=== PATIENT | female | born 1980 | race Caucasian/White ===

== ENCOUNTER 2018-10-19 07:48 | Inpatient (IN) ==
--- NOTE | 2018-10-09 16:44 | PAT Medication Instructions ---
Medication Instructions Date of Service October 09, 2018 Home Medications acetaminophen [Tylenol] 325 - 650 mg PO Q6H PRN Take morning of surgery With a small sip of water, OTHERWISE NOTHING TO EAT OR DRINK AFTER MIDNIGHT: acetaminophen [Tylenol] 325 - 650 mg PO Q6H PRN (okay to take up to 4 hours prior to surgery if needed) Take evening before surgery acetaminophen [Tylenol] 325 - 650 mg PO Q6H PRN (if needed) Other Notes If you have any questions please call us at [phone] or [phone] or [phone] or [phone]
--- NOTE | 2018-10-10 11:52 | Anesthesiology Consultation ---
Date of Service October 10, 2018 Assessment & Plan (1) Encounter for pre-operative examination: - Check test AM DOS Chart Review Chart Review: Acceptable Risk for Surgery and Patient seen in Pre Admission Brittanie leigh Teaching & Discussion Pre-Anesthesia Teaching/Discussion Notes: Instructed NPO after midnight before surgery,except medications with 15 cc of water. Medication instructions provided according to the PAT guidelines. History Surgery Operation Date: 10/19/18 08:50 Proposed Procedures p Supracervical Total Abdominal Hysterectomy with Bilateral Salpingectomy - Mark Roth Jr, MD, FACOG Height/Weight Height: 5 ft 2.75 in Weight: 57.7 kg Allergies Allergy/AdvReac Type Severity Reaction Status Date / Time No Known Allergies Allergy Verified 10/09/18 08:01 Medications Home Medications Medication Instructions Recorded Confirmed Last Taken acetaminophen [Tylenol] 325 - 650 mg PO Q6H PRN 10/09/18 10/09/18 Unknown Past Medical History Medical History Anxiety HX Migraine HX Urinary retention STRAIGHT CATH Q6H PRN (FELT 2/2 FIBROID) Uterine fibroid Exercise / Class Metabolic Activity II 4-5 Yardwork/Stairs/Walk up hill Past Family History Family History Father Family history of diabetes mellitus Past Surgical History Surgical History History of open reduction and internal fixation (ORIF) procedure LEFT ARM History of tooth extraction Past Anesthesia History No Hx of Anesthesia Complications and No Family Hx of Anesthesia Complications History of PONV No Hx of PONV and No Hx of Motion Sickness Social History Smoking Status: Current every day smoker tobacco type: cigarettes Smoking cigarettes per day: <8 CIGARETTES/DAY X 24 YEARS (INTERMITTENT) Do You Dip or Chew Tobacco: No Hx Alcohol Use: Yes Alcohol type: wine alcohol intake frequency: a few times a week Hx Substance Use: Yes substance use type: marijuana Last Used Substance Other:: "OCCASIONAL MARIJUANA USE"; LAST USE 3 WEEKS (ADVISED) Review of Systems Patient denies chest pain, shortness of breath, dyspnea on exertion,reflux, cough, wheezing, palpitations. Physical Exam Vital Signs VITALS BP 115/75 P 83 TEMP 98.8 SP02 95%RA RESP 16 PHYSICAL Full neck and c-spine range of motion. Full TMJ range of motion. TMD 3.5 finger breaths Mallampati Score 1 Dentition: missing molars Lungs: clear throughout to auscultation Cardiac: regular rate and rhythm, no murmurs noted Spine: normal Extremities: no edema Testing Laboratory Results 10/02/18 WBC 6.6 H/H 12.5/37.4 PLATELETS 268 SODIUM 140 POTASSIUM 3.8 CHLORIDE 107 CO2 25 BUN 11 CREATININE 0.72 GLUCOSE 86 UA negative bacteria 10/10/18 T&S B-Ab-
--- NOTE | 2018-10-10 13:22 | History and Physical Report ---
DATE OF ADMISSION: 10/19/2018 ADMITTING DIAGNOSES: 1. Symptomatic fibroid uterus. 2. Urinary outflow tract obstruction. ADMISSION HISTORY: The patient is a 38-year-old 0, last menstrual period of 06 October who is admitted for probable supracervical hysterectomy with bilateral salpingectomy for symptomatic fibroid uterus with urinary tract outflow obstruction. The patient presented to the Emergency Room the first week of September for evaluation of urinary symptoms and abdominal bloating. In the ER, she was diagnosed with an obstructed bladder urethral neck from a fibroid uterus. Lobato catheter was inserted and 3 liters of urine was drained. The patient did not wish to have the Lobato kept in place and she was discharged home. She will return to the ER 24 hours later with recurrent urinary retention and was drained for an additional liter of urine. The patient was taught self-catheterization and she is currently self-catheterizing to drain her bladder. The patient was told 2 years ago by a freezing room worker in [place] that she had large fibroids of her uterus and surgical excision was recommended. The patient wanted to preserve her uterus at that time and was hoping for a laparoscopic approach. The physician in [place] dated that the procedure could be performed laparoscopically. The patient was evaluated in the Emergency Room on 02 October and she related again that she did not wish to have a hysterectomy performed. The patient was subsequently seen in my office in followup. A long discussion with the patient including treatment options were thoroughly discussed and the patient has opted for the above-listed procedures. PAST MEDICAL HISTORY: OB: Nulligravida. PHARMACIST IN CHARGE: As above. MEDICAL: None. SURGICAL: Arm surgery. ALLERGIES: No known drug allergies. SOCIAL HISTORY: Positive for smoking. FAMILY HISTORY: Noncontributory. REVIEW OF SYSTEMS: As per HPI. ADMISSION PHYSICAL EXAMINATION: GENERAL: Shows a pleasant female in no acute distress. VITAL SIGNS: Blood pressure 118/80, height of 5 feet 2 inches and a weight of 127 pounds. HEENT EXAMINATION: Unremarkable. NECK: Supple. LUNGS: Clear. HEART: With a regular rhythm and rate. ABDOMEN: Soft, nontender. Probable distended bladder on physical examination. No hernias discovered. PELVIC: Shows normal external genitalia. The vaginal vault is pink and rugated. The cervix cannot be visualized secondary to displacement behind the pubic bone. On bimanual examination, a large dominant fibroid occupies the pelvis which is palpated approximately 3 cm into the vagina. The cervix can be palpated, but cannot be visualized. The uterus cannot be distinguished from the mass. The adnexa show no palpable masses. RECTAL: Confirmatory. EXTREMITIES: Shows no deep calf tenderness. NEUROLOGIC: Grossly intact. IMPRESSION: A 38-year-old 0, symptomatic fibroid uterus with urinary neck obstruction. PLAN: Pelvic ultrasound in the office shows a 12 cm fibroid occupying the cul-de-sac displacing the uterus anteriorly. In addition, there is a 4 cm fibroid anterior to the fundus. The patient wishes to preserve her uterus if at all possible, but understands that a supracervical hysterectomy may be indicated as well as removal of the cervix. The risks, benefits and alternatives to the surgery have been discussed. While the benefits will be removal of the obstruction of the bladder neck, the risks are bleeding, infection, inadvertent injury to bowel or bladder, and the unknown nature of the surgical procedure. Ideally, the patient would like to preserve her uterus and only have a myomectomy performed. She is also aware that her cervix may need to be removed at the time of the hysterectomy to allow completion of the surgery. The patient would like a transverse incision abdominally. The need for possible cutting of the rectus muscles to allow visualization and space to perform the surgery has been explained to the patient. The patient understands and consents. We have also discussed that if a myomectomy only is performed, the fibroid could recur. All questions answered of the patient, the permit has been signed, and she wishes to proceed.
[~2018-10-19 07:48] MED LIST: ACETAMINOPHEN 1000 MG/100 ML IV IV ONE; LR 15ML/HR IV SCH; LR 60ML/HR IV SCH
[2018-10-19] MEDS ORDERED: CEFAZOLIN 2,000 MG/15 ML IV PUSH IV ONE (07:56)
[2018-10-19] MEDS ORDERED: LIDOCAINE HCL 2% 2 ML VIAL/AMP(20MG/ML) INFIL ONE (07:58)
[2018-10-19] MEDS ORDERED: MIDAZOLAM HCL 1 MG/ML 2ML VIAL ONE (07:58)
[2018-10-19] MEDS ORDERED: PROPOFOL IV EMULSION 10 MG/ML 20 ML VIAL IV ONE (07:58)
[2018-10-19] MEDS ORDERED: fentaNYL citrate 100 MCG/2 ML VIAL ONE (07:58)
[2018-10-19] MEDS ORDERED: DEXAMETHASONE SOD INJ 4 MG/ML VIAL ONE (07:58)
[2018-10-19] MEDS ORDERED: ROCURONIUM BROMIDE 10 MG/ML 5 ML VIAL ONE ×2 (07:58→09:48)
[2018-10-19] MEDS ORDERED: ONDANSETRON INJ 2 MG/ML 2 ML VIAL ONE (07:58)
[2018-10-19] MEDS ORDERED: KETOROLAC 30 MG/ML VIAL ONE (08:38)
[2018-10-19] MEDS ORDERED: NEOSTIGMINE METHYLSULFATE 5 MG/5 ML SYR ONE (08:38)
[2018-10-19] MEDS ORDERED: GLYCOPYRROLATE 0.2 MG/ML VIAL ONE (08:38)
--- NOTE | 2018-10-19 08:41 | History & Physical Bridge Note ---
Date of Service October 19, 2018 History & Physical Bridge Note I have examined the patient, reviewed the History & Physical and in the interval since the performance of the History & Physical I have noted the following changes of clinical significance: no changes noted
[2018-10-19 09:14] LABS: Pregnancy Test, Serum Negative (Negative)
[2018-10-19] MEDS ORDERED: VASOPRESSIN 20 UNIT/ML VIAL ONE (09:14)
[2018-10-19] MEDS ORDERED: MoRPHine SULFATE PF 1 MG/ML 10 ML AMP/VIAL ONE (09:33)
[2018-10-19] MEDS ORDERED: ONDANSETRON INJ 2 MG/ML 2 ML VIAL IV PRN ×2 (09:43→12:39)
[2018-10-19] MEDS ORDERED: NALOXONE HCL 0.08 MG in SYRINGE 1.8 ML IV PRN (09:43)
[2018-10-19] MEDS ORDERED: ePHEDrine sulfate 50 MG/ML AMP IV PRN (09:43)
[2018-10-19] MEDS ORDERED: NALOXONE HCL 1 MG in SODIUM CHLORIDE 0.9% 1000ML 1,000 ML IV PRN (09:43)
[2018-10-19] MEDS ORDERED: PROMETHAZINE HCL 12.5 MG in SODIUM CHLORIDE 0.9% 50 ML IV PRN (09:43)
[2018-10-19] MEDS ORDERED: DiphenhydrAMINE HCL 50 MG/ML VIAL IV PRN (09:43)
[2018-10-19] MEDS ORDERED: NALBUPHINE HCL INJ 10 MG/ML AMP IV PRN (09:43)
[2018-10-19] MEDS ORDERED: MoRPHine SULFATE PF 1 MG/ML 10 ML AMP/VIAL INT SPINAL ONE (09:43)
[2018-10-19] MEDS ORDERED: NALOXONE HCL 0.4 MG/1 ML VIAL/CARP IV PRN (09:43)
[2018-10-19] MEDS ORDERED: LACTATED RINGER'S 500 ML IV PRN (09:43)
[2018-10-19] MEDS ORDERED: NO NARCOTICS OR SEDATIVES SCH (09:45)
[2018-10-19] MEDS ORDERED: SODIUM CHLORIDE 0.9% 1000ML 1,000 ML IV SCH (09:45)
[2018-10-19] MEDS ORDERED: DC INTRASPINAL MORPHINE SCH (09:45)
[2018-10-19] MEDS ORDERED: HYDROmorphone INJ 2 MG/ML SYR/VIAL ONE (10:01)
[2018-10-19] MEDS ORDERED: PHENYLEPHRINE 100MCG/ML 5ML SYR ONE (10:20)
--- NOTE | 2018-10-19 10:46 | Post Operative Brief Note ---
Immediate Post Op Note v1 Date of Surgery October 19, 2018 Pre & Post Diagnosis Operation Date: 10/19/18 09:00 Pre-Op Diagnosis: Fibroid Uterus; Urinary Outflow Obstruction Post-Op Diagnosis: Fibroid Uterus; Urinary Outflow Obstruction Procedure Operation Date: 10/19/18 09:00 Actual Procedures p Supracervical Hysterectomy with Bilateral Salpingectomy - Mark Roth Jr, MD, FACOG Surgeon Mark Roth Jr, MD, FACOG Dance Director Jhonny Omer Estimated Blood Loss 100 Findings See Below (large dominant posterior fibroid occupying cul-de-sac. Multiple seedling fibroids, normal appearing tubes and ovaries bilaterally. Thickend bladder wall. Supracervical hysterectomy with bilateral salpingectomy) Drains Lobato Catheter
[2018-10-19] MEDS: HYDROmorphone INJ 0.5 MG/0.5 ML SYR IV PRN ×2 (11:06→19:15)
[2018-10-19] MEDS ORDERED: HYDROmorphone INJ 1 MG/ML SYRINGE ONE ×2 (11:18→11:30)
[2018-10-19] MEDS ORDERED: LORazepam 2 MG/4 ML VIAL ONE (11:31)
[2018-10-19] MEDS ORDERED: HYDROmorphone INJ 0.5 MG/0.5 ML SYR IV STA (11:36)
[2018-10-19] MEDS ORDERED: LORazepam 0.5 MG/1 ML VIAL IV STA (11:48)
--- NOTE | 2018-10-19 12:21 | Anesthesiology Progress Note ---
Date of Service October 19, 2018 Anesthesia Post Procedure Vital Signs Vital Signs: Temp Pulse Pulse Resp BP Pulse Ox 10/19/18 12:05 91 H 12 136/73 100 10/19/18 11:55 69 12 135/64 99 10/19/18 11:45 66 11 L 126/73 100 10/19/18 11:35 66 10 L 130/74 100 10/19/18 11:25 73 11 L 153/67 H 100 10/19/18 11:15 66 12 138/84 100 10/19/18 11:05 68 10 L 148/74 H 100 10/19/18 10:59 37.3 C 72 20 141/76 H 100 10/19/18 08:21 37.1 C 90 16 112/78 96 Pain Intensity Lower Abdomen: Pain Intensity: 4 Transfer of Care Handoff Completed per policy Notes Mental Status: alert / awake / arousable and participated in evaluation Patient Amnestic to Procedure: Yes Nausea / Vomiting: adequately controlled Pain: improving with treatment (Required multimodal approach along with small dose ativan in PACU for anxiety postop) Airway Patency, RR, SpO2: stable & adequate BP & HR: stable & adequate Hydration State: stable & adequate Anesthetic Complications: no major complications apparent and Pt Satisfied with anesthetic care
[2018-10-19] MEDS ORDERED: KETOROLAC 30 MG/ML VIAL IV PRN (12:39)
[2018-10-19] MEDS: LACTATED RINGER'S 1,000 ML IV SCH ×2 (13:27→16:58)
[2018-10-19] MEDS: MoRPHine SULFATE 2 MG/ML CARP IV PRN ×2 (13:28→16:37)
--- NOTE | 2018-10-19 20:43 | Operative Report ---
DATE OF OPERATION: 10/19/2018 PREOPERATIVE DIAGNOSES: 1. Symptomatic fibroid uterus. 2. Urinary outflow tract obstruction. POSTOPERATIVE DIAGNOSES: 1. Symptomatic fibroid uterus. 2. Urinary outflow tract obstruction. PROCEDURE PERFORMED: 1. Supracervical hysterectomy. 2. Bilateral salpingectomy. SURGEON: Mark Roth MD. PARTS SALES ASSOCIATE: Maria M Omer MD. ANESTHESIA: General. FINDINGS: Exploration of the pelvis showed a large dominant fibroid uterus approximately 11 cm in diameter occupying the cul-de-sac and replacing the posterior wall of the uterus. Multiple seedling fibroids noted throughout the uterus with normal-appearing tubes and ovaries bilaterally. Supracervical hysterectomy with bilateral salpingectomy performed and sent for pathological evaluation. PROCEDURE IN DETAIL: The patient was taken to the operating room and after general anesthesia, was placed in supine position and draped and prepped in usual fashion. Pfannenstiel type incision was made and underlying subcutaneous tissue was dissected down to the ventral abdominal fascia, which was nicked and opened in a horizontal manner. Preperitoneal fascia was dissected away until the peritoneal cavity was entered and opened in a vertical manner. The exploration of the pelvis with fibroid as described. This was delivered out through the incision, pulling the fibroid out of the cul-de-sac and lifting it out of the pelvis and into the operative field. Retractor was not necessary in order to perform the procedure. Ureters were identified along the pelvic sidewall. The left round ligament was ligated with 0 Vicryl suture, cut open the anterior leaf of the broad ligament which was taken down over the level of the cervix. An incision was then made in the broad ligament and the infundibulopelvic ligament was initially clamped distal to the ovary and cut and tied. Uterine vessels were then skeletonized on the left hand side and uterine vessels were then ligated with Ro clamps x2, cut and ligated. The right round ligament was then isolated, ligated with 0 Vicryl suture, cut open the anterior leaf of the broad ligament, which was taken down to join the contralateral side. The ureter was identified along the right pelvic sidewall. An incision was made in the broad ligament and the adnexa was clamped distally to the ovary and cut and ligated with 0 Vicryl suture. Uterine vessels were then skeletonized on the right hand side and the uterine vessels were then cross clamped with Ro clamps x2 and ligated with 0 Vicryl suture. The cervix and bladder flap were identified and created with blunt and sharp dissection. The cervix was visualized and it was felt that the uterus had been isolated from the cervix, so an incision was made across the cervix performing a supracervical hysterectomy and removing the specimen from the field. The cervical stump was closed with interrupted 0 Vicryl sutures. Hemostasis present. The left fallopian tube was isolated and excised along the mesosalpinx and sent for separate pathological specimen. In a similar fashion, the right fallopian tube was cauterized along the mesosalpinx removed and sent for pathological evaluation. Both ovaries were viable and intact. The pelvis was then thoroughly irrigated with 1000 mL of warm saline. All pedicles were inspected for hemostasis, which was present. Sponge and needle count was correct. The rectus muscle was then plicated in the midline with a running 2-0 Vicryl suture. The fascia was closed laterally to the midline with 0 Vicryl sutures. The subcutaneous tissue was irrigated with warm saline and the skin incision was closed with a 4-0 Monocryl subcuticular suture. Sterile dressing was applied and the patient was taken to the recovery room in satisfactory condition. I attest to the content of the Intraoperative Record and any orders documented therein. Any exception s are noted below.
[2018-10-19] MEDS: SENNA 8.6 MG TAB PO SCH (20:48)
[2018-10-19] MEDS: MAGNESIUM HYDROXIDE SUSP 30 ML UDC PO SCH (21:07)
[2018-10-20] MEDS: HYDROmorphone INJ 0.5 MG/0.5 ML SYR IV PRN (00:12)
[2018-10-20] MEDS ORDERED: KETOROLAC 30 MG/ML VIAL IV PRN (03:43)
[2018-10-20] MEDS ORDERED: ONDANSETRON INJ 2 MG/ML 2 ML VIAL IV PRN (03:43)
[2018-10-20 07:06] LABS: Basophils # (auto) 0.01 K/uL (0-0.2); Basophils % (auto) 0.1 %; Eosinophils # (auto) 0.04 K/uL (0-0.5); Eosinophils % (auto) 0.4 %; Hematocrit (blood only) 29.7 % (37-47); Hemoglobin 9.9 g/dL (12.0-16.0); Immature Granulocytes # (auto) 0.01 K/uL (0.00-0.02); Immature Granulocytes % (auto) 0.1 %; Lymphocytes # (auto) 3.23 K/uL (1.2-3.4); Lymphocytes % (auto) 36.3 %; Mean Corpuscular Hgb Conc 33.3 g/dL (32-36); Mean Corpuscular Volume 94.3 fL (80-100); Mean Platelet Volume 10.6 fL (7.4-10.4); Monocytes # (auto) 0.72 K/uL (0.11-0.59); Monocytes % (auto) 8.1 %; Platelet Count 225 K/uL (130-400); RDW Coefficient of Variation 12.9 % (11.5-14.5); RDW Standard Deviation 44.1 fL (36.4-46.3); Red Blood Count 3.15 M/uL (4.2-5.4); White Blood Count 8.91 K/uL (4.8-10.8)
--- NOTE | 2018-10-20 07:26 | Gynecologic Progress Note ---
Date of Service October 20, 2018 Assessment & Plan (1) Leiomyoma of uterus: - discussed surgery and findings patient - importance of ambulation discussed with patient - anticipated post-op anemia, will start Fe - routine care, doing well Subjective post-op pain Physical Exam Constitutional: WD/WN, vitals as above Respiratory: Auscultation: lungs clear to auscultation bilaterally Cardiovascular: RRR, no murmur, no edema Extremities: no calf tenderness Gastrointestinal (Abdomen): Dressing dry, appropriate post-op tenderness Results & Data Vital Signs (Past 12 Hours) Vital Signs Temp Pulse Resp BP Pulse Ox 10/20/18 04:40 36.8 C 63 20 99/59 L 94 10/20/18 00:15 36.8 C 64 18 104/67 98
[2018-10-20] MEDS: OXYCODONE/ACETAMINOPHEN 5mg/325mg TAB PO PRN ×5 (08:28→20:19)
[2018-10-20] MEDS: FERROUS SULFATE 325 MG TAB PO SCH (10:31)
[2018-10-20] MEDS: IBUPROFEN 600 MG TAB PO PRN ×3 (12:00→20:19)
--- NOTE | 2018-10-20 17:08 | Anesthesiology Progress Note ---
Date of Service October 20, 2018 Anesthesia Post Procedure Vital Signs Vital Signs: Temp Pulse Pulse Resp BP Pulse Ox 10/20/18 16:10 37.0 C 63 18 115/76 97 10/20/18 11:45 37.0 C 65 18 116/77 96 10/20/18 08:15 36.8 C 60 16 106/65 92 10/20/18 04:40 36.8 C 63 20 99/59 L 94 10/20/18 00:15 36.8 C 64 18 104/67 98 10/19/18 19:05 37.4 C 64 16 99/62 L 97 Pain Intensity Lower Abdomen: Pain Intensity: 5 Transfer of Care Handoff Completed per policy Notes Mental Status: alert / awake / arousable and participated in evaluation Patient Amnestic to Procedure: Yes Nausea / Vomiting: adequately controlled Pain: adequately controlled Airway Patency, RR, SpO2: stable & adequate BP & HR: stable & adequate Hydration State: stable & adequate Anesthetic Complications: no major complications apparent and Pt Satisfied with anesthetic care
[2018-10-20] MEDS ORDERED: MoRPHine SULFATE 4 MG/ML 1 ML CARP\\VIAL IV STA (18:15)
[2018-10-20] MEDS: MAGNESIUM HYDROXIDE SUSP 30 ML UDC PO SCH (20:50)
[2018-10-20] MEDS: SENNA 8.6 MG TAB PO SCH (20:51)
[2018-10-20] MEDS: SIMETHICONE 80 MG CHEW PO PRN (20:53)
[2018-10-21] MEDS: OXYCODONE/ACETAMINOPHEN 5mg/325mg TAB PO PRN ×2 (00:14→04:25)
[2018-10-21] MEDS: IBUPROFEN 600 MG TAB PO PRN ×3 (00:14→08:09)
[2018-10-21] MEDS: SIMETHICONE 80 MG CHEW PO PRN ×3 (00:14→08:09)
[2018-10-21 06:08] LABS: Basophils # (auto) 0.02 K/uL (0-0.2); Basophils % (auto) 0.2 %; Hematocrit (blood only) 29.1 % (37-47); Hemoglobin 9.5 g/dL (12.0-16.0); Immature Granulocytes # (auto) 0.02 K/uL (0.00-0.02); Immature Granulocytes % (auto) 0.2 %; Lymphocytes # (auto) 2.53 K/uL (1.2-3.4); Lymphocytes % (auto) 25.7 %; Mean Corpuscular Hgb Conc 32.6 g/dL (32-36); Mean Platelet Volume 10.7 fL (7.4-10.4); Monocytes # (auto) 0.64 K/uL (0.11-0.59); Monocytes % (auto) 6.5 %; Neutrophils # (auto) 6.45 K/uL (1.4-6.5); Neutrophils % (auto) 65.4 %; Platelet Count 189 K/uL (130-400); RDW Coefficient of Variation 13.1 % (11.5-14.5); RDW Standard Deviation 45.2 fL (36.4-46.3); Red Blood Count 3.03 M/uL (4.2-5.4); White Blood Count 9.86 K/uL (4.8-10.8)
--- NOTE | 2018-10-21 07:28 | Gynecologic Progress Note ---
Date of Service October 21, 2018 Assessment & Plan (1) S/P abdominal supracervical subtotal hysterectomy: satsifactory post-operative progress D/C to home scripts for motrin & percocet given to patient follow up as discussed with Dr. zhou Present on Admission?: No Subjective feels better this morning pain meds working well now. . passing flatus but no BM yet. tolerating regular diet. voiding with out substantial residual. Review of Systems Review of Systems: All systems reviewed & are unremarkable except as noted in HPI & below Physical Exam Constitutional: WD/WN, vitals as above Gastrointestinal (Abdomen): normal bowel sounds, soft, nontender, no hepatosplenomegaly incision intact , mild ecchymosis noted. Musculoskeletal: no cyanosis or clubbing, extremities motor strength 5/5 negative calf tenderness Results & Data Vital Signs (Past 12 Hours) Vital Signs Temp Pulse Resp BP Pulse Ox 10/21/18 04:20 36.9 C 75 14 101/64 93 10/21/18 00:05 36.8 C 74 16 95/58 L 94 10/20/18 20:10 37.2 C 74 18 132/87 96
[2018-10-21] MEDS ORDERED: OXYCODONE HCL IR 5 MG TAB (IMMEDIATE RELEASE) PO PRN ×2 (07:45→08:15)
[2018-10-21] MEDS ORDERED: FERROUS SULFATE 325 MG TAB PO SCH (09:00)
[2018-10-21] MEDS: FERROUS SULFATE 325 MG TAB PO SCH (11:01)
--- NOTE | 2018-10-22 08:19 | Discharge Summary ---
ADMITTING DIAGNOSES: 1. Symptomatic fibroid uterus. 2. Urinary outflow tract obstruction. DISCHARGE DIAGNOSES: 1. Symptomatic fibroid uterus. 2. Urinary outflow tract obstruction. PROCEDURES PERFORMED: 1. Supracervical hysterectomy. 2. Bilateral salpingectomy. DISCHARGE MEDICATIONS: 1. Percocet 5/325 1-2 p.o. q. 4-6 hours p.r.n. pain. 2. Motrin 600 mg p.o. q. 6 hours p.r.n. pain. ADMISSION HISTORY: The patient is a 38-year-old 0, last menstrual period of 06 October, admitted for probable supracervical hysterectomy with bilateral salpingectomy for symptomatic fibroid uterus with urinary tract outflow obstruction. The patient presented to the Emergency Room in the first week of September for evaluation of urinary symptoms and abdominal bloating. In the Emergency Room, she was diagnosed with an obstructed bladder urethral neck from a fibroid uterus. Lobato catheter was inserted and 3 liters of urine was drained. The patient did not wish to have the Lobato kept in place and she was discharged home. The patient returned to the ER 24 hours later with recurrent urinary retention which was drained for an additional liter of urine. The patient was taught self-catheterization and she was currently catheterizing to drain her bladder at admission. The patient was told 2 years ago by a manager [employer] in [place] that she has large fibroids of her uterus and surgical excision was recommended. The patient wanted to preserve her uterus at that time and was hoping for a laparoscopic approach. Physician in [place] stated that the procedure could not be performed laparoscopically. The patient was evaluated in the Emergency Room on 02 October and was related again that she did not wish to have a hysterectomy performed. The patient was subsequently seen in my office in followup. A long discussion with the patient including treatment options were thoroughly discussed and the patient has opted for the above-listed procedures. PHYSICAL EXAMINATION: GENERAL: Admission physical showed a pleasant female in no acute distress. VITAL SIGNS: Blood pressure 118/80, height of 5 feet 2 inches and weight of 127 pounds. HEENT: Unremarkable. NECK: Supple. LUNGS: Clear. HEART: With a regular rhythm and rate. ABDOMEN: Soft, nontender. Palpable distended bladder. On physical examination. No hernias discovered. PELVIC: Shows normal external genitalia. The vaginal vault pink and rugated. The cervix cannot be visualized secondary to displacement behind the pubic bone. On bimanual examination, a large dominant fibroid occupies the pelvis which is palpated approximately 3 cm into the vagina. The cervix can be palpated, but cannot be visualized. The uterus cannot be distinguished from the mass and the adnexa showed no palpable masses. RECTAL: Confirmatory. EXTREMITIES: Shows no deep calf tenderness. NEUROLOGICAL: Grossly intact. ADMISSION LABORATORY VALUES: Show an H of 12.5 and 37.4. HOSPITAL COURSE: On day of admission, the patient was taken to the operating room where she underwent the above-listed procedures. Operative finding showed a large dominant fibroid uterus approximately 11 cm in diameter occupying the cul-de-sac and were placed in the posterior wall of the uterus. Multiple seedling fibroids noted throughout the uterus with normal-appearing tubes and ovaries bilaterally, supracervical hysterectomy with bilateral salpingectomy performed and sent for pathological evaluation. Postoperatively, the patient did well. Lobato catheter was removed on the first postoperative day. H and H came back at 9.9 and 29.7. The patient was able to empty her bladder without difficulty. By the second postoperative day, she was ambulating without difficulty and tolerating a regular diet. She was discharged home with routine postoperative discharge instructions and the prescriptions for the medications as listed as above. She will follow up in the office in 2 weeks' time for postoperative check, but as always she has been instructed to call with any questions, problems or difficulties.
== END 2018-10-21 10:45 | disposition home or self-care (01) | DRG 743 ==
LOC: ASU 07:48 → 4N 12:51